=== PATIENT | male | born 1985 | race Caucasian/White ===

== ENCOUNTER → 2017-08-27 | Day surgery (SDC) | payer OTHER ==
[2017-08-23 15:11] LABS: BASOPHILS # (AUTO) 0.1 (0.0-0.1); BASOPHILS % 0.4 % (0.0-1.0); EOSINOPHILS # (AUTO) 0.1 (0.0-0.4); EOSINOPHILS % 0.6 % (0.0-6.0); HEMATOCRIT 45.9 % (38.2-49.6); HEMOGLOBIN 15.5 g/dL (14.0-18.0); LYMPHOCYTES # (AUTO) 3.3 (1.0-3.2); LYMPHOCYTES % 26.8 % (18.0-39.1); MEAN CORPUSCULAR HEMOGLOBIN 29.8 pg (28-32); MEAN CORPUSCULAR HGB CONC 33.8 g/dL (31-35); MEAN CORPUSCULAR VOLUME 88.3 fL (81-99); MONOCYTES % 8.2 % (4.4-11.3); NEUTROPHILS # (AUTO) 7.8 (2.1-6.9); NEUTROPHILS % 63.7 % (38.7-80.0); PLATELET COUNT 251 x10e3/uL (140-360)
[2017-08-23 15:36] LABS: ALANINE AMINOTRANSFERASE 31 IU/L (0-55); ALBUMIN 4.3 g/dL (3.5-5.0); ALBUMIN/GLOBULIN RATIO 1.3 (0.8-2.0); ALKALINE PHOSPHATASE 89 IU/L (40-150); ANION GAP 11.2 mmol/L (8-16); BLOOD UREA NITROGEN 12 mg/dL (7-26); BUN/CREATININE RATIO 13 (6-25); CARBON DIOXIDE 27 mmol/L (22-29); CHLORIDE 106 mmol/L (98-107); EST GLOMERULAR FILTRATION RATE > 60 ML/MIN (60-); GLUCOSE 92 mg/dL (74-118); POTASSIUM 4.2 mmol/L (3.5-5.1); SODIUM 140 mmol/L (136-145)
[~2017-08-27] MED LIST: BELLADONNA/OPIUM 60 MG SUPP PR ONE; CEFTRIAXONE SOD 1 GM VIAL ONE; DEXAMETHASONE SOD PHOS INJ 4 MG/ML VIAL ONE; IOPAMIDOL 610MG/1ML 300 MG/ML VIAL IV ONE; KETOROLAC TROMETHAMINE 30 MG/ML VIAL ONE; LIDOCAINE HCL 2% LOCAL INJ 5 ML SDV VIAL INJ ONE; MIDAZOLAM HCL 2 MG/2 ML VIAL ONE; MORPHINE SULFATE INJ 10 MG/ML ONE; ONDANSETRON HCL INJ 2 MG/ML VIAL ONE; PROPOFOL IV EMULSION 10 MG/ML 20 ML VIAL ONE; SEVOFLURANE INHAL SOLN 250 ML PEN BTL ONE
--- NOTE | 2017-10-10 08:42 | Operative Report ---
DATE OF PROCEDURE: August 27, 2017 PREOPERATIVE DIAGNOSES 1. Hematuria. 2. History of urolithiasis. POSTOPERATIVE DIAGNOSES 1. Hematuria. 2. History of urolithiasis. 3. Urethral stricture disease at the fossa navicularis. 4. Bladder tumor consistent with bladder cancer at the level of the patient's bladder neck. PROCEDURES PERFORMED 1. Cystourethroscopy with calibration and dilation of urethral stricture disease (separate procedure performed for diagnosis of the stricture). 2. Cystourethroscopy with bilateral ureteral catheterization and retrograde ureteropyelography (separate procedure performed for diagnosis of the urolithiasis and gross hematuria). 3. Interpretation of retrograde ureteropyelography. 4. Supervision of fluoroscopy. No radiologist present. 5. Cystourethroscopy with transurethral resection of bladder tumor from the bladder neck (separate procedure performed for the bladder tumor). ANESTHESIA: General. COMPLICATIONS: None. CLINICAL SUMMARY: Bert Guzman is a 31-year-old man who has had gross hematuria and has had urolithiasis. He is brought for the above procedures. He is aware of the risks of bleeding, infection, injury to adjacent structures, need for additional procedures and elected to proceed. OPERATIVE PROCEDURE IN DETAIL: Informed consent was verified. Bert Guzman was properly identified, taken to the operating room, and placed on the cystoscopy table in the supine position. Anesthesia was uneventfully begun. The patient was then carefully and gently repositioned in the dorsal lithotomy position with all pressure points well padded. His genitalia were prepared and draped in the usual sterile fashion. The 22.5-[place] cystourethroscope sheath with the visual obturator in place was atraumatically inserted into the patient's urethra. We could then not pass it past the fossa navicularis. The cystoscope was withdrawn. We then utilized female sounds to progressively dilate the stricture to 26-[place] in size. Following this, we were easily able to place the cystoscope sheath with the visual obturator into the patient's urethra and guided it down the otherwise unremarkable urethra, past a normal sphincteric region, into the patient's prostate bed. The prostate bed was significant for being normal except for the bladder neck region where there was a pedicle right at the bladder neck at approximately the 7 o'clock position. This pedicle attached to a bladder tumor. Panendoscopy of the urinary bladder revealed no additional bladder tumors. There were no stones, and there were no otherwise suspicious lesions. A ureteral catheter was used to cannulate both ureters, and retrograde ureteropyelograms were performed. Interpretation of retrograde ureteropyelography: Contrast was instilled in retrograde fashion bilaterally. There were no tumors, no stones and no diverticula. Unobstructed drainage was observed bilaterally fluoroscopically. There was a question of a left distal ureteral stricture, and we will follow up on this in future tests. Cold cup biopsy forceps were then utilized to grasp this bladder tumor at the base of its pedicle. We resected that off of the bladder neck. We were able to extract this tumor out of the patient's urethra. This tumor was significant in size, at least 3 cm in size at the maximal diameter. 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 We obtained additional bites at the base of the tumor with the cold cup biopsy forceps. Following this, we fulgurated the base of the tumor, and perfect hemostasis was obtained. The patient's bladder was drained. Belladonna and opium suppository was placed revealing a prostate that is approximately 30 g in size. It was smooth, nonfluctuant and without any nodules. This prostate was larger than would be expected in a 31-year-old man. The patient was then uneventfully reversed from anesthesia and taken to the recovery room in stable condition. There were no complications to the procedure. He tolerated the procedure well. Explicit postoperative instructions were given. We will follow the patient up in the office and, of course, on a long-term basis. Job#: [id number]
== END | disposition home or self-care (01) ==
LOC: OR 06:15
PROVIDERS: ATTEND Urology
DX: C67.9 Malignant neoplasm of bladder, unspecified (principal); Z87.442 Personal history of urinary calculi; N35.9 Urethral stricture, unspecified; N39.0 Urinary tract infection, site not specified; R35.1 Nocturia; F17.210 Nicotine dependence, cigarettes, uncomplicated; Z01.812 Encounter for preprocedural laboratory examination; Z84.1 Family history of disorders of kidney and ureter
CPT/HCPCS: 36415; 52005; 52235; 74420; 80053; 85025; 88305; C1758; J0696; J1100; J1885; J2001; J2250; J2270; J2405; Q9967

== ENCOUNTER 2019-11-02 08:51 | Outpatient (RCR) | payer BC | END 2019-11-03 | LOC: PT 08:51 | PROVIDERS: ATTEND Specialist | DX: S33.5XXD Sprain of ligaments of lumbar spine, subsequent encounter (principal); M53.86 Other specified dorsopathies, lumbar region; M54.5 Low back pain; M25.511 Pain in right shoulder; M25.611 Stiffness of right shoulder, not elsewhere classified; M62.81 Muscle weakness (generalized); R26.2 Difficulty in walking, not elsewhere classified ==

== ENCOUNTER 2019-11-13 10:09 | Outpatient (RCR) | payer BC, OTHER | END 2019-12-04 | LOC: PT 10:09 | PROVIDERS: ATTEND Specialist | DX: S33.5XXD Sprain of ligaments of lumbar spine, subsequent encounter (principal); M54.5 Low back pain; M25.511 Pain in right shoulder; M25.611 Stiffness of right shoulder, not elsewhere classified; M62.81 Muscle weakness (generalized); R26.2 Difficulty in walking, not elsewhere classified ==